=== PATIENT | female | born 1995 | race Caucasian/White ===

== ENCOUNTER 2024-06-05 18:22 | Emergency (ER) | payer OTHER, SELFPAY ==
[2024-06-05 18:23] VITALS: BP 100/84
[2024-06-05 18:37] VITALS: BMI 32.1
[2024-06-05 18:55] LABS: % Basophils 0.2 % (0-2); % Eosinophils 0.2 % (0-6); % Immature Granulocytes 0.3 % (0-0.5); % Lymphocytes 11.9 % (20.5-51.1); % Monocytes 3.2 % (1.7-9.3); % Neutrophils 84.2 % (42.2-75.2); Absolute Lymphocytes 1.5 10^3/uL (1.2-3.4); Absolute Monocytes 0.4 10^3/uL (0.1-0.6); Absolute Neutrophils 10.9 10^3/uL (1.4-6.5); Hematocrit 43.2 % (37.0-47.0); Hemoglobin 14.3 g/dL (12.0-16.0); Mean Corp Hgb Conc. 33.1 g/dL (33.0-37.0); Mean Corpuscular Hgb 29.1 pg (27.0-31.0); Mean Corpuscular Volume 87.8 fL (81.0-99.0); Nucleated Red Blood Cells % 0 %; Platelet Count 277 10^3/uL (130-400); Red Blood Cell Count 4.92 10^6/uL (4.20-5.40); Red Cell Dist. Width 12.1 % (11.5-14.5)
--- NOTE | 2024-06-05 19:07 | ED.GENMED ---
History of Present Illness
General
Chief Complaint: Headache
Time Seen by Provider: 06/05/24 19:06
History of Present Illness
History of Present Illness:
TIME OF INITIAL ENCOUNTER: 7 PM
HPI: Patient presents due to a headache over the last 4 days. She has a history of migraine type headaches but this feels 'worse'. She does have associated photophobia and nausea. She states that she last had neuroimaging approximately 15 years
ago
EXAM:
GENERAL: Well appearing but appears somewhat uncomfortable, she appears to be photophobic
HEENT: Moist oral mucosa
CARDIOVASCULAR: No murmurs, normal heart rate, regular rhythm, No chest wall tenderness
PULMONARY: No respiratory distress, breath sounds are clear and equal
ABDOMEN: Soft with no peritoneal signs, no tenderness
NEUROLOGIC: Excellent strength all extremities, no coordination deficits
PSYCHIATRIC: Appropriate mental status, normal insight and judgement
EXTREMITIES: Nontender, no edema, moves all extremities equally
SKIN: No rash, no lesions
NUMBER AND COMPLEXITY OF PROBLEMS ADDRESSED AT THE ENCOUNTER
� Chronic conditions affecting care: Headache/migraine, has had posterior cervical lymph node removal for biopsy
� Acute Exacerbation and/or Progression of Chronic Illness: This is an acute problem
� Differential Diagnosis includes: Migraine type headache, tension headache, viral syndrome
AMOUNT AND/OR COMPLEXITY OF DATA TO BE REVIEWED AND ANALYZED
� I performed an independent evaluation of and my interpretation is:
EKG: Sinus 68, normal axis, no acute ST abnormality
CT:
X-rays:
Laboratory Studies: White count 13, hemoglobin normal
Other:
� Review of other/old records: No old records available for review in [facility]
� Clinical information was obtained by an independent historian: I spoke to family member at bedside
� Prescriptions/Medications Considered but not given:
� Further testing considered but not performed:
RISK OF COMPLICATIONS AND/OR MORBIDITY OR MORTALITY OF PATIENT MANAGEMENT
� Social determinants of health affecting care: Lives at home
� Discussion with other providers:
� Escalation of care including admission/observation vs risk of discharge considered: We gave a dose of Reglan with Benadryl along with Toradol and fluids.
ANY OTHER UPDATES:
8:45 PM: She feels significantly improved and eager to go home on reassessment
Phy Exam
Physical Exam
Physical Exam:
See HPI
Course
Orders/Labs/Results
Orders:
Orders
06/05/24 18:28
EKG [Electrocardiogram (*1)] Urgent
Reason for Study: Syncope
EKG- Treatment ONCE
06/05/24 18:46
Test Result ONCE
06/05/24 18:47
CMP [Comprehensive Metabolic Panel] Urgent
Complete Blood Count/With Diff Urgent
HCG, Serum Qualitative Screen Urgent
06/05/24 19:15
0.9% Sodium Chloride 1000 ml [Nss] 1,000 ml IV BOLUS
Diphenhydramine [Benadryl] 25 mg IV NOW STA
Ketorolac [Toradol] 15 mg IV NOW STA
Metoclopramide [Reglan] 10 mg IV NOW STA
Abnormal Lab Results
06/05/24
18:47
WBC 13.0 H 10^3/uL
(4.8-10.8)
Absolute Neuts (auto) 10.9 H 10^3/uL
(1.4-6.5)
Neutrophils % 84.2 H %
(42.2-75.2)
Lymphocytes % 11.9 L %
(20.5-51.1)
Glucose 107 H mg/dl
(70-99)
06/05/24 18:47
06/05/24 18:47
Vital Signs
Initial and Last Documented VS:
Initial Vital Signs
Temp Pulse Resp BP Pulse Ox
97.9 F 73 16 100/84 98
06/05/24 18:23 06/05/24 18:23 06/05/24 18:23 06/05/24 18:23 06/05/24 18:23
Last Documented Vital Signs
Temp Pulse Resp BP Pulse Ox
97.9 F 73 16 100/84 98
06/05/24 18:23 06/05/24 18:23 06/05/24 18:23 06/05/24 18:23 06/05/24 18:23
*Critical Care Note
Total Time (30-74mins, 75-104mins- exclusive of procedures): Not Applicable
ED Attending Note
-
Portions of this chart may have been created with voice recognition software.� Occasional wrong word or��sound alike� substitutions may have occurred due to the inherent limitations of voice recognition software.
Discharge Plan
Departure
Patient Disposition: Home (Routine Discharge)
Date of Disposition: 06/05/24
Time of Disposition: 20:46
Patient with high blood pressure during this ER visit?: Yes
Discharge Problem:
Migraine
Instructions: Migraines (DC)
Referrals:
Edson Daniel MD [Active] - Next open appointment
UNKNOWN - PT DOES,NOT KNOW [Family Provider] -
Activity Restrictions/Additional Instructions:
We gave you Reglan with Benadryl along with Toradol. I recommend that you follow-up with your primary care doctor and I have also given the contact information for local neurologist.
Interventions
Interventions:
*Risk Screen - Suicide Last Done: 06/05/24 18:23
*General Assessment Last Done: 06/05/24 18:38
*Neglect/Abuse Screening Last Done: 06/05/24 18:23
*ED COVID-19 Vaccine History Last Done: 06/05/24 18:38
Discharge Date and Time
Print Language: ARGENTINE
[2024-06-05 19:15] LABS: HCG, Serum Qualitative Screen Negative
[2024-06-05 19:16] LABS: ALT (SGPT) 20 U/L (0-35); AST (SGOT) 26 U/L (14-36); Albumin 4.9 g/dl (3.5-5.0); Alkaline Phosphatase 57 U/L (38-126); Blood Urea Nitrogen 11 mg/dl (7-17); Calcium 9.4 mg/dl (8.4-10.2); Carbon Dioxide 24 mmol/L (22-30); Chloride 103 mmol/L (98-107); Estimated Creatinine Clearance 119 ml/min; Glucose 107 mg/dl (70-99); Potassium 4.2 mmol/L (3.5-5.1); Sodium 141 mmol/L (135-145); Total Bilirubin 0.5 mg/dl (0.2-1.3); Total Protein 7.6 g/dl (6.3-8.2); eGFR > 60.00
[2024-06-05] MEDS: NSS 1000 IV (19:22)
[2024-06-05] MEDS: TORADOL 15 MG IV (19:23)
[2024-06-05] MEDS: REGLAN 10 MG IV (19:23)
[2024-06-05] MEDS: BENADRYL 25 MG IV (19:23)
--- NOTE | 2024-06-05 20:45 | EDRN ---
Patient reports feeling better and ready to go home, informed the doctor.
== END 2024-06-05 21:28 | disposition home or self-care (01) ==
LOC: EMR 18:22
PROVIDERS: EMERGENCY PHYSICIAN Emergency Medicine
DX: G43.909 Migraine, unspecified, not intractable, without status migrainosus (principal); R03.0 Elevated blood-pressure reading, without diagnosis of hypertension
CPT/HCPCS: 99284; 96374; 96375 ×2; 96361; 80053; 84703; 85025; 93005

== ENCOUNTER → 2025-03-14 16:15 | Outpatient (REF) | payer OTHER, SELFPAY | LOC: RAD 16:15 | PROVIDERS: ATTENDING PHYSICIAN Obstetrics & Gynecology; FAMILY PHYSICIAN Family Medicine | DX: C34.90 Malignant neoplasm of unspecified part of unspecified bronchus or lung (principal) | CPT/HCPCS: 76801 ==